=== PATIENT | male | born 1990 | race Caucasian/White ===

== ENCOUNTER 2022-09-18 06:55 | Outpatient (CLI) | payer MEDICAID | END 2022-09-18 23:59 | disposition short-term general hospital (02) | LOC: EMS 06:55 | DX: S99.911A Unspecified injury of right ankle, initial encounter (principal); M54.50 Low back pain, unspecified; R41.0 Disorientation, unspecified | CPT/HCPCS: A0425; A0427; A0999 ==

== ENCOUNTER 2023-01-15 16:09 | Outpatient (CLI) | payer MEDICAID ==
--- NOTE | 2023-01-15 17:02 | XRAY Report ---
PROCEDURE: ThoracoLumbar 2 View INDICATIONS: FX OF FIRST LUMBAR VERTEBRA TECHNIQUE: 4 views acquired of the thoracolumbar spine. COMPARISON: None FINDINGS: Bones: Wedge-shaped L1 compression fracture with 50% anterior height loss and no retropulsed fracture fragment. Appropriate alignment without change on flexion and extension imaging Soft tissues: No suspicious soft tissue calcifications. IMPRESSION: Stable L1 compression fracture without segmental instability Reviewed by: Shaun Wolfe MD on 01/15/2023 4:01 PM [facility] Approved by: Shaun Wolfe MD on 01/15/2023 4:01 PM [facility] Station ID: [id number]
== END 2023-01-15 16:10 | disposition home or self-care (01) ==
LOC: DI 16:09
PROVIDERS: ATTEND Neurological Surgery
DX: S32.011D Stable burst fracture of first lumbar vertebra, subsequent encounter for fracture with routine healing (principal)

== ENCOUNTER 2023-03-14 10:24 | Outpatient (CLI) | payer MEDICAID ==
--- NOTE | 2023-03-15 16:17 | XRAY Report ---
PROCEDURE: ThoracoLumbar 2 View INDICATIONS: LUMBAR FX TECHNIQUE: 2 views acquired of the thoracolumbar spine. COMPARISON: Thoracolumbar spine 01/15/2023 FINDINGS: Bones: L1 compression deformity with approximately 53% height loss compared to 50% prior exam. No ret ropulsed fragment. Visualized inferior ribs appear intact. No suspicious bony lesions. Soft tissues: No suspicious soft tissue calcifications. IMPRESSION: Relatively stable L1 compression deformity. Reviewed by: Marian Thompson MD on 03/15/2023 4:15 PM PST Approved by: Marian Thompson MD on 03/15/2023 4:15 PM PST Station ID: [id number]
== END 2023-03-14 10:25 | disposition home or self-care (01) ==
LOC: DI 10:24
PROVIDERS: ATTEND Neurological Surgery
DX: S32.011D Stable burst fracture of first lumbar vertebra, subsequent encounter for fracture with routine healing (principal)

== ENCOUNTER 2023-06-28 14:20 | Outpatient (CLI) | payer MEDICAID ==
[2023-06-28 19:53] LABS: BASOPHILS # (AUTO) 0.1 10^3/uL (0.0-0.1); EOSINOPHILS # (AUTO) 0.1 10^3/uL (0.0-0.7); EOSINOPHILS % (AUTO) 2.9 %; HCT - HEMATOCRIT 45.4 % (42.0-52.0); HGB - HEMOGLOBIN 15.4 g/dL (14.0-18.0); LYMPHOCYTES # (AUTO) 2.1 10^3/uL (1.5-3.5); LYMPHOCYTES % (AUTO) 43.8 %; MEAN CORPUSCULAR HEMOGLOBIN 31.3 pg (27.0-31.0); MEAN CORPUSCULAR HGB CONC 33.9 g/dL (32.0-36.0); MEAN CORPUSCULAR VOLUME 92.3 fL (80.0-94.0); MEAN PLATELET VOLUME 10.5 fL (7.4-11.4); MONOCYTES # (AUTO) 0.4 10^3/uL (0.0-1.0); MONOCYTES % (AUTO) 7.2 %; NEUTROPHILS # (AUTO) 2.2 10^3/uL (1.5-6.6); NEUTROPHILS % (AUTO) 44.9 %; PLT - PLATELET COUNT 238 10^3/uL (130-450); RED BLOOD COUNT 4.92 10^6/uL (4.70-6.10); RED CELL DISTRIBUTION WIDTH 12.3 % (12.0-15.0); WHITE BLOOD COUNT 4.9 x10^3/uL (4.8-10.8)
[2023-06-28 20:18] LABS: THYROID STIMULATING HORMONE 3.98 uIU/mL (0.34-5.60)
[2023-06-28 20:25] LABS: ALBUMIN 4.5 g/dL (3.2-5.5); ALBUMIN/GLOBULIN RATIO 1.8 (1.0-2.2); BILIRUBIN,TOTAL 0.7 mg/dL (0.2-1.0); CALCIUM 9.5 mg/dL (8.5-10.3); CREATININE 0.9 mg/dL (0.6-1.3); POTASSIUM 4.1 mmol/L (3.5-4.5)
== END 2023-06-28 14:21 | disposition home or self-care (01) ==
LOC: LAB.S 14:20
PROVIDERS: ATTEND Registered Nurse
DX: R53.83 Other fatigue (principal); G47.00 Insomnia, unspecified; R53.81 Other malaise; F41.9 Anxiety disorder, unspecified; F32.A Depression, unspecified
CPT/HCPCS: 36415; 80053; 82306; 84443; 85025

== ENCOUNTER 2023-10-22 13:49 | Outpatient (CLI) | payer MEDICAID | END 2023-10-22 13:50 | disposition home or self-care (01) | LOC: DI 13:49 | PROVIDERS: ATTEND Physician Assistant Medical | DX: R94.31 Abnormal electrocardiogram [ECG] [EKG] (principal) | CPT/HCPCS: 93307 ==